=== PATIENT | female | born 1985 | race Two or more races ===

== ENCOUNTER 2024-07-22 00:54 | Inpatient (IN) | payer OTHER, SELFPAY ==
[2024-07-22] VITALS (17 sets, daily range): BP systolic 98–124; BP diastolic 55–80; PULSE 94–133; RESP 13–20; TEMP 36.4–37.9; O2SAT 96–100; BMI 28.5; BMI 29.6
--- NOTE | 2024-07-22 02:13 | EDRME_ITS ---
Rapid Medical Screening Exam [facility] Arrival date/time: 07/22/24 00:54 39F with history of anemia and bariatric surgery 7 years ago presents to ED with 2 days of gen ab pain and non-bloody diarrhea. Patient also states she had a 103 temp yesterday. Patient denies URI symptoms. Chief Complaint: Abdominal Pain Vital signs: Vital Signs Temperature 97.8 F 07/22/24 01:45 Pulse Rate 110 H 07/22/24 01:45 Respiratory Rate 17 07/22/24 01:45 Blood Pressure 111/73 07/22/24 01:45 Pulse Oximetry (%) 99 07/22/24 01:45 Oxygen Delivery Method Room Air 07/22/24 01:45
[2024-07-22] MEDS: ONDANSETRON ODT 4 MG TABRAP PO (02:23)
[2024-07-22 02:32] LABS: Lactate (Lactic Acid) 1.1 mMol/L (0.4-2.0)
--- NOTE | 2024-07-22 02:38 | XR_ITS ---
Examination: Abdomen sonogram, Limited Date and time of exam: July 22, 2024 0310 hours INDICATIONS: Epigastric pain beginning 2 days ago Technique: Real-time sargent scale transabdominal sonographic images of the upper abdomen obtained. Findings: 16 mm gallstone Gallbladder wall 0.3 cm no edema Common bile duct 0.3 cm Pancreatic head 1.9 cm Liver 15.6 cm fatty infiltration smooth contour no focal liver lesions Normal hepatopedal portal venous flow Patent IVC IMPRESSION: Cholelithiasis, negative for cholecystitis
[2024-07-22 02:40] LABS: Basophils # (Auto) 0.1 Thou/mm3 (0.0-0.2); Basophils % (Auto) 0 % (0-2.5); Eosinophils # (Auto) 8.6 Thou/mm3 (0.0-0.5); Eosinophils % (Auto) 45 % (0-10); Hematocrit 32.4 % (36.0-46.0); Hemoglobin 9.3 g/dL (12.0-16.0); Immature Granulocytes % (Auto) 0 % (0-0); Immature Granulocytes Auto 0.06 Thou/mm3 (0.00-0.00); Lymphocytes % (Auto) 5 % (10-50); Mean Corpuscular HGB Conc 28.7 g/dl (31.0-37.0); Mean Corpuscular Hemoglobin 18.9 pg (25.0-35.0); Mean Corpuscular Volume 66 fL (80-100); Monocytes % (Auto) 5 % (0-12); Neutrophils # (Auto) 8.5 Thou/mm3 (1.8-7.7); Neutrophils % (Auto) 44 % (37-80); Nucleated Red Blood Cell # 0.02 Thou/mm3 (0.00-0.00); Nucleated Red Blood Cell % 0 /100 WBC (0); Platelet Count 591 Thou/mm3 (140-440); RDW Standard Deviation 43.5 fL (36.4-46.3); Red Blood Count 4.93 Miln/mm3 (4.00-5.20); White Blood Count 19.2 Thou/mm3 (3.6-11.0)
[2024-07-22 03:03] LABS: Alanine Aminotransferase 11 U/L (10-49); Albumin, Serum 4.7 gm/dL (3.5-5.0); Albumin/Globulin Ratio 1.7 (1.2-2.2); Alkaline Phosphatase 82 U/L (46-116); Anion Gap 7 (7-16); Aspartate Amino Transferase 17 U/L (0-34); BUN/Creatinine Ratio 9 Ratio (12-20); Bilirubin,Total 0.6 mg/dL (0.3-1.2); Blood Urea Nitrogen 7 mg/dL (9-23); Calcium 9.2 mg/dL (8.3-10.6); Calcium (Corrected) 9.2 mg/dL (8.5-10.1); Carbon Dioxide 24.7 mMol/L (20.0-31.0); Chloride 101 mMol/L (98-107); Creatinine (Component) 0.8 mg/dL (0.6-1.3); Estimated Creatinine Clearance 85.3 mL/min (>60); Globulin 2.7 gm/dL (2.3-3.5); Glucose 193 mg/dL (74-106); Lipase 26 U/L (12-53); Osmolality,Calculated 269 (275-295); Procalcitonin 0.11 ng/ml (0.0-0.49); Sodium 133 mMol/L (136-145); Total Protein 7.4 gm/dL (5.7-8.2); eGFR > 60 See Note
--- NOTE | 2024-07-22 04:00 | PRELIM_ITS ---
Gallbladder ultrasound. July 22, 2024 at 0310 hours Clinical history: Right upper quadrant/epigas tric pain. Findings:The liver measures 16 cm and demonstrates increased echogenicity without mass or ductal dilatation. The portal vein demonstrates hepatopetal flow. A large calculus is seen with poste rior shadowing in the gallbladder. No gallbladder wall thickening or pericholecystic fluid is identif ied. The common duct is normal in caliber at 3.1 mm. The pancreas is unremarkable to the extent visua lized. The inferior vena cava is patent.Impression:Cholelithiasis without sonographic evidence of acu te cholecystitis or biliary obstruction. Fatty infiltration of the liver. Report Electronically Maria Victoria d By: Caroline Valverde 07/22/2024 3:59:40 AM [EST]
[2024-07-22] MEDS: MORPHINE SULF INJ 10 MG/ML VIAL 5 MG IM (04:37)
--- NOTE | 2024-07-22 04:46 | PC.NURSE ---
Pt made aware that we need a urine sample.
[2024-07-22] MEDS: SODIUM CHLORIDE 0.9% 1000 ML 1,000 ML 999 ML IV ×4 (06:25→11:55)
--- NOTE | 2024-07-22 06:50 | PC.NURSE ---
Pt appears ill. color is pale, eye movement is slow. GCS is 15. Pt unable to void at this time.
--- NOTE | 2024-07-22 07:11 | XR_ITS ---
Examination: CT abdomen with intravenous contrast CT pelvis with intravenous contrast 2-D coronal reconstructions 2-D sagittal reconstructions Date and time of exam:August 01, 2024 1013 hours INDICATIONS: Right-sided abdominal pain right upper epigastric pain beginning 2 days ago. CTDI: vol (mGy) 8.93 DLP: (mGycm) 533 Technique: Multiple axial sections of the abdomen and pelvis have been obtained. 64 slice high-resolution scanner used. 3 mm axial sections have been obtained, post intravenous injection 60 cc [id number] 2-D sagittal, coronal reconstructions obtained. Low dose protocols were performed. One or more of the following dose reduction techniques were used; automated exposure control, adjustment of the mA and/or KV according to patient size, use of iterative reconstruction technique. Findings: No focal liver lesions Distended gallbladder, please see the gallbladder sonogram report July 22, 2024 Spleen is not enlarged No pancreatic or adrenal mass No renal or ureteral calculi, no hydronephrosis Fluid distended small bowel loops Mild free fluid in the abdomen Fluid-filled enlarged inflamed appendix with appendicoliths, coronal images 57 through 68 medial to the cecum Diffuse increased density throughout the peritoneum especially in the pelvis Anteverted uterus Right ovarian probable follicular cysts Intact osseous structures IMPRESSION: Findings most consistent with perforated acute appendicitis, peritonitis in the pelvis, no definite pelvic abscess at this time The appearance should be clinically correlated
[2024-07-22] MEDS: PIPER/TAZO INJ 3.375 GM in SODIUM CHLORIDE 0.9% (P) 50 ML IV (07:31)
[2024-07-22] MEDS: SODIUM CHLORIDE 0.9% 250 ML 250 ML 999 ML IV (07:32)
[2024-07-22 07:45] LABS: HCG,Qualitative Serum Negative
[2024-07-22] MEDS: HYDROmorphone INJ 2 MG/ML VIAL 1 MG IVP ×2 (07:46→12:14)
[2024-07-22] MEDS: Vancomycin Inj 1,500 MG in SODIUM CHLORIDE 0.9% 500 ML 500 ML 200 MG IV (08:25)
[2024-07-22 09:25] LABS: Collection Type, Urine Clean Catch
[2024-07-22 09:29] LABS: HCG Qualitative,Urine Negative
[2024-07-22 09:30] LABS: Bilirubin,Urine Negative (Negative); Blood,Urine Trace (Negative); Clarity,Urine Clear (Clear/Hazy); Color,Urine Yellow (Lt Yel-Yel); Culture Indicated,Urine Not Indicated; Glucose, Urine Negative (Negative); Hyaline Casts,Urine < 1 /hpf (0-1); Ketones,Urine 1+ (Negative); Leukocyte Esterase,Urine Negative (Negative); Nitrite,Urine Negative (Negative); PH,Urine 6.5 (5.0-7.0); Protein,Urine 1+ (Neg - Trace); RBC,Urine 6 /hpf (0-3); Specific Gravity,Urine 1.035 (1.001-1.035); Squamous Epithelial Cell,Urine 3 /hpf (0-5); WBC,Urine 2 /hpf (0-5)
[2024-07-22 09:42] LABS: Amphetamine/Methamp Scrn,U Negative (Negative); Barbiturate Screen,Urine Negative (Negative); Benzodiazepines Screen,Urine Negative (Negative); Benzoylecgonine Screen, Ur Negative (Negative); Fentanyl Screen,Urine Negative (Negative); Opiate Screen,Urine Positive (Negative); THC Screen,Urine Negative (Negative)
--- NOTE | 2024-07-22 10:54 | EDNOTE_ITS ---
ED Abdominal Pain RME/HPI General Chief Complaint: Abdominal Pain Stated complaint: ABD pain, fever X 1day Time seen by provider: 07/22/24 04:15 Arrival date/time: 07/22/24 00:54 Limitations: no limitations RME / HPI RME / HPI narrative: 07/22/24 00:54 39F with history of anemia and bariatric surgery 7 years ago presents to ED with 2 days of gen ab pain and non-bloody diarrhea. Patient also states she had a 103 temp yesterday. Patient denies URI symptoms. DR. SHAYAN MERAZ ED EVALUATION: 39 year old female with hx of gastric bypass 7 years ago presents to the ED for complaint of abdominal pain beginning yesterday and worsening today. States pain is located throughout abdomen but greater across lower abdomen and described as It feels like my stomach is going to explode . Accompanied by nausea, dry heaving, fever of 103F yesterday, and 101F early this morning. No known modifying factors at home. Denies chest pain, cough, shortness of breath, URI symptoms, or urinary symptoms. Related Data Allergies Allergy/AdvReac Type Severity Reaction Status Date / Time No Known Allergies Allergy Verified 07/22/24 00:56 Review of Systems Review of Systems Narrative Review of Systems: GEN: +fever, no weight loss EYES: No discharge, no visual changes, no pain HEENT: No ear pain, no congestion, no sore throat PULM: No shortness of breath, no cough, no congestion CV: No chest pain, no dyspnea on exertion, no palpitations GI: +nausea, +dry heaving, no diarrhea, +pain, no constipation : No frequency, no urgency, no dysuria MUSC/SKEL: No joint pain, no back pain SKIN: No rash NEURO: No weakness, no headache Past Medical History Past Medical History GASTROINTESTINAL: Positive Gastrointestinal Disorders, Hemorrhoids and Obesity REPRODUCTIVE: Positive Pelvic Inflammatory Disease and Previous Pregnancies HEMATOLOGIC: Positive Blood Disorders and Anemia OTHER HISTORY: Positive Hospitalization and Chicken Pox Family History FAMILY HISTORY: Positive Family Respiratory Disorders, Family Gastrointestinal Problems, Family Cancer and Family Surgery Surgical History SURGICAL: Positive Abdominal Surgery, Gastric Bypass Surgery and Section (X3) Social History SMOKING STATUS: Never smoker ED Exam General Limitations: Present no limitations General appearance: Present alert and other (Mild distress) Head Head exam: Present atraumatic, normocephalic and normal inspection Eye Eye exam: Present normal appearance, PERRL and EOMI ENT ENT exam: Present normal exam, normal oropharynx and mucous membranes moist Neck Neck exam: Present normal inspection, full ROM and trachea midline Chest Chest inspection: Present normal inspection and symmetric chest wall rise Respiratory Respiratory exam: Present normal lung sounds bilaterally Cardiovascular Cardiovascular exam: Present tachycardia and normal heart sounds Abdominal Exam Abdominal exam: Present tenderness (Moderate to severe tenderness to palpation in the RUQ and RLQ with voluntary guarding); Absent rebound or rigidity Extremities Exam Extremities exam: Present normal inspection and full ROM Back Exam Back exam: Present normal inspection and full ROM Neurological Exam Neurological exam: Present alert, oriented X3 and CN II-XII intact Psychiatric Psychiatric exam: Present normal affect and normal mood Skin Skin exam: Present warm, dry, intact and normal color Course Quality Measures Current suspected stage: sepsis Possible source: GI tract/intra-abdominal Blood cultures ordered: completed in ED Antibiotic ordered: Yes Pertinent labs: 07/22/24 02:27 Lactic Acid 1.1 mMol/L (0.4-2.0) Procalcitonin 0.11 ng/ml (0.0-0.49) 0715: Sepsis alert initiated 0830: Sepsis reassessment performed consisting of lab review, vitals, physical exam. sepsis Orders Category Date Time Status CT Screening NOW Care 07/22/24 07:11 Active Splitting Machine Operator STAT Care 07/22/24 07:10 Active Continuous Pulse Oximetry STAT Care 07/22/24 07:11 Completed EKG (ED ONLY) *Do not use* NOW Care 07/22/24 07:11 Completed In and Out Catheter X1 Care 07/22/24 07:10 Active Miscellaneous Nursing Order NOW Care 07/22/24 09:11 Active NPO STAT Care 07/22/24 07:[address] abdomen pelvis w con Stat Exams 07/22/24 07:11 Completed EKG (ED Only) Stat Exams 07/22/24 07:10 Ordered US gall bladder Stat Exams 07/22/24 02:38 Completed CBC AM DRAW Lab 07/23/24 05:00 Ordered CBC AM DRAW Lab 07/24/24 05:00 Ordered CBC AM DRAW Lab 07/25/24 05:00 Ordered CBC AM DRAW Lab 07/26/24 05:00 Ordered CBC AM DRAW Lab 07/27/24 05:00 Ordered CBC AM DRAW Lab 07/28/24 05:00 Ordered CBC Stat Lab 07/22/24 02:27 Completed CMP [Comprehensive Metabolic Panel] AM DRAW Lab 07/23/24 05:00 Ordered CMP [Comprehensive Metabolic Panel] AM DRAW Lab 07/24/24 05:00 Ordered CMP [Comprehensive Metabolic Panel] AM DRAW Lab 07/25/24 05:00 Ordered CMP [Comprehensive Metabolic Panel] AM DRAW Lab 07/26/24 05:00 Ordered CMP [Comprehensive Metabolic Panel] AM DRAW Lab 07/27/24 05:00 Ordered CMP [Comprehensive Metabolic Panel] AM DRAW Lab 07/28/24 05:00 Ordered CMP [Comprehensive Metabolic Panel] Stat Lab 07/22/24 02:27 Completed Drug Screen,Urine Stat Lab 07/22/24 09:06 Completed HCG Qualitative,Urine Stat Lab 07/22/24 09:06 Completed HCG,Qualitative Serum Stat Lab 07/22/24 02:27 Completed Lactate (Lactic Acid) Stat Lab 07/22/24 02:27 Completed Lipase Stat Lab 07/22/24 02:27 Completed Procalcitonin Stat Lab 07/22/24 02:27 Completed Urinalysis, C/S if Indicated Stat Lab 07/22/24 09:06 Completed Vancomycin,Trough Stat Lab 07/23/24 21:00 Ordered Acetaminophen Ivpb [Ofirmev Inj] Med 07/22/24 11:30 Discontinued 1,000 mg in 100 ml IV NOW HYDROmorphone INJ [Dilaudid Inj] Med 07/22/24 07:10 Discontinued 1 mg IVP Q1H PRN Morphine Inj Med 07/22/24 04:30 Discontinued 5 mg IM X1 ONE Ondansetron Odt [Zofran Odt] Med 07/22/24 02:21 Discontinued 4 mg PO X1 ONE Piper/Tazo Inj [Zosyn Inj] 3.375 gm Med 07/22/24 07:14 Discontinued Sodium Chloride 0.9% (P) [Ns 0.9% (P)] 50 ml IV X1 Sodium Chloride 0.9% 1000 ml [Ns] 1,000 ml Med 07/22/24 07:10 Discontinued IV 999 mls/hr Sodium Chloride 0.9% 1000 ml [Ns] 1,000 ml Med 07/22/24 07:14 Discontinued IV 999 mls/hr Sodium Chloride 0.9% 1000 ml [Ns] 1,000 ml Med 07/22/24 11:30 Discontinued IV 999 mls/hr Sodium Chloride 0.9% 250 ml [Ns] 250 ml Med 07/22/24 07:14 Discontinued IV 999 mls/hr Vancomycin Inj 1,500 mg Med 07/22/24 08:00 Discontinued Sodium Chloride 0.9% 500 ml [Ns] 500 ml IV X1 Vancomycin Pharmacy to Dose Med 07/22/24 09:00 Active 1 each IV QDAY PRN Vancomycin/Ns 1 gm Ivpb 200 ml Med 07/22/24 22:00 Pending IV BID@1000,2200 Reevaluation(s) Reevaluation #1: Patient has moderate-severe abdominal tenderness, will order CT abdomen. Time: 07:13 Reevaluation #2: Patient complains of pain. Tachycardic on telemetry. We reviewed all the results, analysis, and treatment plans. Patient is amenable to admission for surgery. Time: 11:30 Vital Signs Vital signs: Vital Signs Temperature 97.8 F 07/22/24 01:45 Pulse Rate 110 H 07/22/24 01:45 Respiratory Rate 17 07/22/24 01:45 Blood Pressure 111/73 07/22/24 01:45 Pulse Oximetry (%) 99 07/22/24 01:45 Oxygen Delivery Method Room Air 07/22/24 01:45 Pulse ox is 99% on room air which is adequate. Abdominal Pain MDM MDM Narrative MDM Narrative:: Rima Campos am scribing for and in the presence of Dr. Schultz. Patient data External records reviewed:: [facility] previous records (I reviewed admission from 10/01/2019 through 10/02/2019 for anemia ) Clinical information provided by:: patient Social determinants that could affect healthcare access:: none Patient has the following chronic illnesses:: s/p gastric bypass How is presenting disease/condition affected by chronic disease/condition?: uneffected by Evaluation data The following diagnostics were reviewed and interpreted by me:: lab results, radiology exam(s) and EKG tracing(s) (EKG @ 07:24 am. Sinus tachycardia, rate 103, normal axis, normal intervals, no ectopy, no acute ischemia. ) Lab and/or radiology exams considered but not ordered:: None Interpretation Summary: Ordering Physician: Xavier Carrear PA-C Date of Service: 07/22/24 Procedure(s): US gall bladder Accession Number(s): [id number] cc: Arik Mcmahon MD; Ananth Carey MD; Xavier Carrera PA-C~ Examination: Abdomen sonogram, Limited Date and time of exam: July 22, 2024 0310 hours INDICATIONS: Epigastric pain beginning 2 days ago Technique: Real-time sargent scale transabdominal sonographic images of the upper abdomen obtained. Findings: 16 mm gallstone Gallbladder wall 0.3 cm no edema Common bile duct 0.3 cm Pancreatic head 1.9 cm Liver 15.6 cm fatty infiltration smooth contour no focal liver lesions Normal hepatopedal portal venous flow Patent IVC IMPRESSION: Cholelithiasis, negative for cholecystitis Dictated By: Ananth Carey MD Signed By: <Electronically signed by Ananth Carey MD in OV> 07/22/24 1017 ====== Ordering Physician: Drew Schultz MD Date of Service: 07/22/24 Procedure(s): CT abdomen pelvis w con Accession Number(s): [id number] cc: Arik Mcmahon MD; Ananth Carey MD; Drew Schultz MD~ Examination: CT abdomen with intravenous contrast CT pelvis with intravenous contrast 2-D coronal reconstructions 2-D sagittal reconstructions Date and time of exam:August 01, 2024 1013 hours INDICATIONS: Right-sided abdominal pain right upper epigastric pain beginning 2 days ago. CTDI: vol (mGy) 8.93 DLP: (mGycm) 533 Technique: Multiple axial sections of the abdomen and pelvis have been obtained. 64 slice high-resolution scanner used. 3 mm axial sections have been obtained, post intravenous injection 60 cc [id number] 2-D sagittal, coronal reconstructions obtained. Low dose protocols were performed. One or more of the following dose reduction techniques were used; automated exposure control, adjustment of the mA and/or KV according to patient size, use of iterative reconstruction technique. Findings: No focal liver lesions Distended gallbladder, please see the gallbladder sonogram report July 22, 2024 Spleen is not enlarged No pancreatic or adrenal mass No renal or ureteral calculi, no hydronephrosis Fluid distended small bowel loops Mild free fluid in the abdomen Fluid-filled enlarged inflamed appendix with appendicoliths, coronal images 57 through 68 medial to the cecum Diffuse increased density throughout the peritoneum especially in the pelvis Anteverted uterus Right ovarian probable follicular cysts Intact osseous structures IMPRESSION: Findings most consistent with perforated acute appendicitis, peritonitis in the pelvis, no definite pelvic abscess at this time The appearance should be clinically correlated Dictated By: nAanth Carey MD Signed By: <Electronically signed by Ananth Carey MD in OV> 07/22/24 1106 Medications / Prescriptions Medications or Prescriptions considered but not ordered:: None Medication administrations:: Medication Administration History Acetaminophen (Acetaminophen 325 Mg Tablet) 650 mg PO Q6H PRN PRN Reason: Fever >101.5 Stop: 08/21/24 15:19 Vancomycin/Sodium Chloride (Vancomycin/Ns 1 Gm Ivpb) 200 mls @ 120 mls/hr IV BID@1000,2200 THANIA; Protocol Stop: 07/29/24 21:59 Potassium Chloride/Dextrose/Sod Cl (Kcl 20 Meq/L In D5-1/2ns) 20 meq in 1,000 mls @ 100 mls/hr IV .Q10H THANIA Stop: 08/21/24 15:29 Cefoxitin Sodium 2 gm/ Sodium (Chloride) 50 mls @ 100 mls/hr IV Q6HR THANIA Stop: 07/29/24 17:59 Morphine Sulfate (Morphine Sulf Inj 10 Mg/Ml Vial) 3 mg IVP Q2H PRN PRN Reason: PAIN Stop: 07/27/24 15:19 Ondansetron HCl (Ondansetron Inj 2 Mg/Ml Inj 2 Ml) 4 mg IV Q6H PRN PRN Reason: NAUSEA OR VOMITING Stop: 08/21/24 15:19 Pharmacy Consult (Vancomycin Pharmacy To Dose 1 Each Each) 1 each IV QDAY PRN PRN Reason: PROTOCOL Stop: 08/21/24 08:59 Discontinued Medications Hydromorphone HCl (Hydromorphone Inj 2 Mg/Ml Vial) 1 mg IVP Q1H PRN PRN Reason: abdominal pain Stop: 07/22/24 10:11 Last Admin: 07/22/24 12:14 Dose: 1 mg Documented By: Admin: 07/22/24 07:46 Dose: 1 mg Documented By: GREG Sodium Chloride (Ns) 1,000 mls @ 999 mls/hr IV .Q1H1M ONE Stop: 07/22/24 08:10 Last Infusion: 07/22/24 08:58 Dose: Infused Documented By: Admin: 07/22/24 07:30 Dose: 999 mls/hr Documented By: Infusion: 07/22/24 07:26 Dose: Infused Documented By: Admin: 07/22/24 06:25 Dose: 999 mls/hr Documented By: AKILAH Sodium Chloride (Ns) 1,000 mls @ 999 mls/hr IV .Q1H1M ONE Stop: 07/22/24 08:14 Last Infusion: 07/22/24 08:58 Dose: Infused Documented By: Admin: 07/22/24 07:31 Dose: 999 mls/hr Documented By: GREG Sodium Chloride (Ns) 250 mls @ 999 mls/hr IV .Q16M ONE Stop: 07/22/24 07:29 Last Infusion: 07/22/24 08:58 Dose: Infused Documented By: Admin: 07/22/24 07:32 Dose: 999 mls/hr Documented By: GREG Piperacillin Sod/Tazobactam (Sod 3.375 gm/ Sodium Chloride) 50 mls @ 100 mls/hr IV X1 ONE Stop: 07/22/24 07:43 Last Infusion: 07/22/24 08:01 Dose: Infused Documented By: Admin: 07/22/24 07:31 Dose: 100 mls/hr Documented By: GREG Vancomycin HCl 1,500 mg/ (Sodium Chloride) 500 mls @ 200 mls/hr IV X1 ONE Stop: 07/22/24 10:29 Last Infusion: 07/22/24 11:53 Dose: Infused Documented By: Admin: 07/22/24 08:25 Dose: 200 mls/hr Documented By: GREG Acetaminophen (Ofirmev Inj) 1,000 mg in 100 mls @ 250 mls/hr IV NOW ONE Stop: 07/22/24 11:53 Last Infusion: 07/22/24 12:22 Dose: Infused Documented By: Admin: 07/22/24 11:55 Dose: 250 mls/hr Documented By: CHEYENNE Sodium Chloride (Ns) 1,000 mls @ 999 mls/hr IV .Q1H1M ONE Stop: 07/22/24 12:30 Last Infusion: 07/22/24 15:23 Dose: Infused Documented By: Admin: 07/22/24 11:55 Dose: 999 mls/hr Documented By: CHEYENNE Morphine Sulfate (Morphine Sulf Inj 10 Mg/Ml Vial) 5 mg IM X1 ONE Stop: 07/22/24 04:31 Last Admin: 07/22/24 04:37 Dose: 5 mg Documented By: LIAN Ondansetron HCl (Ondansetron Odt 4 Mg Tabrap) 4 mg PO X1 ONE; Protocol Stop: 07/22/24 02:22 Last Admin: 07/22/24 02:23 Dose: 4 mg Documented By: LIAN See above Consultations Consultation(s) initiated? (list below): Yes Consultation #1 (Physician, Specialty, Details): I spoke with surgeon Dr. Ram. Discussed patients PMHx, HPI, ED course, exam findings, labs, and radiology results. States he will come evaluate the patient in the ED. Time: 11:35 Diagnosis Differential diagnosis abdominal pain: abdominal pain, acute appendicitis, calculus of kidney, gastroenteritis and pancreatitis Most likely diagnosis given after review of the tests above:: Perforated appendicitis Admission Indicated Admission indicated?: indicated Admission Request Was there a request for admission?: Yes Admission Attestation Admission request attestation: Discussed case with [] from Hospitalist service regarding admission. Discussed patients ED course, exam findings, labs, and radiology results. The Hospitalist [agrees,declines] to accept the patient for admission. Disposition Plan Disposition Plan: Admit Critical Care Time Critical Care Time Critical Care Time: Yes Total Critical Care Time (min.): 45 Attestation: The high probability of sudden, clinically significant deterioration in the patient's condition required the highest level of my preparedness to intervene urgently. The services I provided to this patient were to treat and/or prevent clinically significant deterioration. Services included the following: chart data review, reviewing nursing notes and/or old charts, documentation time, mobile sales consultant collaboration regarding findings and treatment options, medication orders and management, direct patient care, vital sign assessments and ordering, interpreting and reviewing diagnostic studies and lab tests. Aggregate critical care time includes only time during which I was engaged in work directly related to the patient's care, as described above, whether at bedside or elsewhere in the Emergency Department. It did not include time spent performing other reported procedures or the services of residents, students, nurses or physician assistants. Discharge Plan Plan Patient Disposition: Admit Acute Care w/in Hospital Problem List Clinical Impression: Acute perforated appendicitis
[2024-07-22] MEDS: ACETAMINOPHEN IVPB 1,000 MG/100 ML VIAL 250 MG IV (11:55)
--- NOTE | 2024-07-22 16:08 | PC.NURSE ---
report given to sx pt taken to sx
--- NOTE | 2024-07-22 16:44 | ESHP_ITS ---
HPI Date of Admission 07/22/24 15:20 Chief Complaint Chief Complaint: Right lower quadrant abdominal pain with nausea and vomiting HPI 39-year-old female presented to the emergency department with acute onset of ab dominal pain. Her pain started 3 days ago. Pain was initially in the epigastric and periumbilical region. Since yesterday her pain has become localized over right lower quadrant and has been getting progressively worse. She has had nausea and vomiting, but denies fever, chills, diarrhea, constipation or dysuria. She denies having similar symptoms in the past with no recent history of trauma. Review of Systems Constitutional Constitutional: Denies chills and Denies fever(s) Cardiovascular Cardiovascular: Denies chest pain Respiratory Respiratory: Denies cough Gastrointestinal Gastrointestinal: Reports abdominal pain, Reports nausea and Reports vomiting Genitourinary Genitourinary: Denies difficulty voiding Hematologic/Lymphatic Hematologic/Lymphatic: Denies easy bleeding and Denies easy bruising Past Medical History Surgical History OTHER SURGICAL HX: , laparoscopic gastric bypass Social History SMOKING STATUS: Never smoker SUBSTANCE USE: does not use ALCOHOL: Never Meds Home Medications and Allergies Allergies Allergy/AdvReac Type Severity Reaction Status Date / Time No Known Allergies Allergy Verified 07/22/24 00:56 Exam Vital Signs Temp Pulse Resp BP Pulse Ox O2 Del Method 98.9 F 110 H 18 99/58 L 97 Room Air 07/22/24 14:02 07/22/24 14:02 07/22/24 14:02 07/22/24 14:02 07/22/24 14:02 07/22/24 14:02 Constitutional Constitutional: no acute distress Routine Respiratory Exam Respiratory: Present CTA bilaterally Routine Cardiovascular Exam Cardiovascular: Present tachycardia Routine Abdominal Exam Abdominal: Present soft, normoactive bowel sounds and tenderness (Right lower quadrant tenderness to palpation with guarding and rebound tenderness. Positive Rovsing sign); Absent distended Results Results: Laboratory Laboratory results: results reviewed Results: Imaging CT scan - abdomen: report reviewed and image reviewed CT scan - pelvis: report reviewed and image reviewed Assessment & Plan Problem List (1) Acute appendicitis with perforation and localized peritonitis: Status: Acute Plan Will keep patient n.p.o. with IV fluids and IV antibiotics and plan for laparoscopic possible open appendectomy. Risks include but not limited to infection, bleeding, injury to bowel, uterus, ovaries, surround neurovascular structures, abdominal sepsis and or abdominal abscess, need for further procedure and or operation discussed with the patient. Benefits and alternatives explained to her, all her questions answered, she agreed and consented to proceed with the operation. Quality Measures Quality Measures sepsis Current suspected stage: ruled out Possible source: GI tract/intra- abdominal Blood cultures ordered: completed in ED Antibiotic ordered: Yes
--- NOTE | 2024-07-22 17:45 | SUR.PHASEI ---
received pt and report from Dr. Thompson and RN Minna. Pt resting however arousable to voice and touch. vss. hr slightly tachy, Dr. Thompson at bedside and aware. He stated pt's baseline prior to surgery was hr tachy. will cont to monitor. IV in place, no s/s of inifiltration noted to site, x4 dermabond to abd, CDI. no distress noted, will con to monitor.
--- NOTE | 2024-07-22 18:03 | SUR.PHASEI ---
pt resting, no distress noted. vss, dressing x4 to abd remains CDI. will continue to monitor
--- NOTE | 2024-07-22 18:04 | ESOP_ITS ---
Date of Procedure 07/22/24 Pre Op Diagnosis Perforated appendicitis Post Op Diagnosis Perforated appendicitis with generalized peritonitis Procedure Laparoscopic appendectomy with abdominal washout Findings Perforated appendix with purulent drainage throughout the abdomen Procedure Description Patient was brought into the operating room in supine position. After administration of general endotracheal anesthesia, abdomen was prepped and draped in standard surgical manner. A Veress needle was inserted through the umbilicus and pneumoperitoneum was obtained up to 15 mmHg. The Veress needle was removed and a 5 mm umbilical incision was made. A 5 mm trocar was placed and laparoscopic camera was inserted. Under direct visualization a laparoscopic camera a 5 mm trocar placed in suprapubic region and a 10 mm trocar placed in left lower quadrant. Upon entering the abdominal cavity patient was noted to have purulent drainage throughout the abdomen. The abdomen was inspected, the cecum was identified and followed until the appendix was identified, there was extensive amount of inflammatory reaction. The appendix was identified, was noted to be inflamed, dilated with perforation. A window was created between the appendix and mesoappendix and the appendix was divided near the appendix and cecal junction with blue Endo LAZARO stapling device. The mesoappendix was divided with sargent Endo LAZARO stapling device. The appendix was placed inside an Endo Catch and removed from the abdomen utilizing left lower quadrant trocar site. Abdomen and pelvis copiously and thoroughly washed and irrigated, all the fluids were suctioned and the suctioned fluid returned clear. Hemostasis was adequate and satisfactory, staple lines were intact without bleeding or any leakage. Left lower quadrant trocar sites fascial defect was closed with 0 Vicryl using Endo closure device. Instruments and trocars removed, pneumoperitoneum was evacuated and the incisions closed with 4-0 Monocryl subcuticular fashion. Instruments, needles and sponge counts were reported to be correct ??2. Patient tolerated the procedure well, was extubated, breathing spontaneously and without difficulty and was transferred to postanesthesia care in stable condition. Anesthesia GETA and local Pathology / specimen Other (Appendix) Estimated Blood Loss 10 Condition Stable Disposition PACU Surgeon Rodrick Ram MD Surgical Staff Operation Date: 07/22/24 17:15 Case Staff Anesthesiologist: Lonnie Thompson RNprimer powder blender wet: Kary Mello
--- NOTE | 2024-07-22 18:19 | SUR.PHASEI ---
report given DWAYNE REESE. pt recoverying well, no distress noted, vss. dressing remains cdi, iv site no s/s of infiltration or redness. Pt ready to transfer
--- NOTE | 2024-07-22 18:44 | PD.ANESPROG ---
Documentation for date of: 07/22/24 ANESTHESIA NOTE: Patient had GETA for lap appendectomy earlier today. Pre-op, she was having lot of abdominal pain, has been febrile and tachycardic. She did well intra-op and in PACU. I gave her 1 gm IV Acetaminophen intra-op at 17:30 and 2 gm IV Cefoxitin. Lonnie Thompson MD Anesthesia Progress Note Progress Note Most recent Vital Signs: Last Vital Signs Temp 97.5 F 07/22/24 18:00 Pulse 115 H 07/22/24 18:00 Resp 15 07/22/24 18:00 BP 110/66 07/22/24 18:00 Pulse Ox 98 07/22/24 18:00 O2 Del Method Room Air 07/22/24 14:02 O2 Flow Rate 2 07/22/24 18:00
[2024-07-22] MEDS: CEFOXITIN 2 GM in SODIUM CHLORIDE 0.9% (P) 50 ML IV (19:53)
[2024-07-22] MEDS: KCL 20 mEq/L in D5-1/2NS 20 MEQ/1,000 ML BAG 100 MEQ IV (19:53)
[2024-07-22] MEDS: ONDANSETRON INJ 2 MG/ML INJ 2 ML 4 MG IV (19:53)
[2024-07-22] MEDS: MORPHINE SULF INJ 10 MG/ML VIAL 3 MG IVP (20:36)
[2024-07-22] MEDS: metroNIDAZOLE/NS 500 MG IVPB 500 MG/100 ML BAG 200 MG IV (20:54)
[2024-07-23] VITALS: BP 117/70; PULSE 85; RESP 17; TEMP 36.3; O2SAT 95
[2024-07-23] MEDS: CEFOXITIN 2 GM in SODIUM CHLORIDE 0.9% (P) 50 ML IV ×5 (01:03→23:28)
[2024-07-23 04:00] VITALS: BP 116/79; PULSE 80; RESP 17; TEMP 36.1; O2SAT 96
[2024-07-23] MEDS: metroNIDAZOLE/NS 500 MG IVPB 500 MG/100 ML BAG 200 MG IV ×3 (05:55→21:25)
[2024-07-23] MEDS: KCL 20 mEq/L in D5-1/2NS 20 MEQ/1,000 ML BAG 100 MEQ IV ×2 (06:24→17:31)
[2024-07-23] MEDS: MORPHINE SULF INJ 10 MG/ML VIAL 3 MG IVP ×4 (07:39→23:32)
[2024-07-23 08:00] VITALS: BP 128/85; PULSE 101; RESP 17; TEMP 36.9; O2SAT 98
--- NOTE | 2024-07-23 09:52 | PD.SURPROG ---
Documentation for date of: 07/23/24 Subjective Subjective Narrative: Patient is seen and examined. She is feeling much better. She is tolerating liquid diet without nausea or vomiting. She has been voiding and ambulating Exam Vital Signs Temp Pulse Resp BP Pulse Ox O2 Del Method O2 Flow Rate 98.4 F 101 H 17 128/85 H 98 Room Air 2 07/23/24 08:00 07/23/24 08:00 07/23/24 08:00 07/23/24 08:00 07/23/24 08:00 07/23/24 08:00 07/22/24 18:15 Constitutional Constitutional: no acute distress Routine Abdominal Exam Abdominal: Present soft, normoactive bowel sounds and tenderness (Tenderness to deep palpation over lower abdomen. No rebound tenderness or peritonitis at this time. Incisions are clean, dry and intact); Absent distended Assessment & Plan Assessment Additional comments: Postop day #1 status post laparoscopic appendectomy for perforated appendicitis with generalized peritonitis Plan Continue IV antibiotics. Will keep patient on liquid diet today. Patient is advised to increase ambulation Procedures Procedures Laparoscopic appendectomy with abdominal washout
[2024-07-23 12:00] VITALS: BP 122/82; PULSE 99; RESP 18; TEMP 36.6; O2SAT 97
[2024-07-23 16:00] VITALS: BP 119/70; PULSE 93; RESP 18; TEMP 36.9; O2SAT 97
[2024-07-23 20:00] VITALS: BP 135/83; PULSE 103; RESP 17; TEMP 36.6; O2SAT 99
[2024-07-24] VITALS (21 sets, daily range): BP systolic 105–136; BP diastolic 74–85; PULSE 96–122; RESP 16–189; TEMP 36.6–39.2; O2SAT 94–98
[2024-07-24] MEDS: ACETAMINOPHEN 325 MG TABLET 650 MG PO ×3 (03:52→23:32)
[2024-07-24] MEDS: MORPHINE SULF INJ 10 MG/ML VIAL 3 MG IVP ×3 (03:53→22:03)
[2024-07-24] MEDS: CEFOXITIN 2 GM in SODIUM CHLORIDE 0.9% (P) 50 ML IV ×4 (05:20→23:32)
[2024-07-24 05:37] LABS: Basophils % (Auto) 0 % (0-2.5); Eosinophils % (Auto) 0 % (0-10); Hematocrit 23.1 % (36.0-46.0); Immature Granulocytes % (Auto) 1 % (0-0); Immature Granulocytes Auto 0.07 Thou/mm3 (0.00-0.00); Lymphocytes # (Auto) 0.9 Thou/mm3 (1.0-4.8); Lymphocytes % (Auto) 7 % (10-50); Mean Corpuscular HGB Conc 28.6 g/dl (31.0-37.0); Mean Corpuscular Hemoglobin 18.5 pg (25.0-35.0); Mean Corpuscular Volume 65 fL (80-100); Monocytes # (Auto) 0.8 Thou/mm3 (0.0-0.8); Monocytes % (Auto) 6 % (0-12); Neutrophils # (Auto) 11.3 Thou/mm3 (1.8-7.7); Neutrophils % (Auto) 87 % (37-80); Nucleated Red Blood Cell % 0 /100 WBC (0); Platelet Count 337 Thou/mm3 (140-440); RDW Standard Deviation 43.8 fL (36.4-46.3); Red Blood Count 3.56 Miln/mm3 (4.00-5.20); White Blood Count 13.1 Thou/mm3 (3.6-11.0)
[2024-07-24 05:54] LABS: Hemoglobin 6.6 g/dL (12.0-16.0)
[2024-07-24] MEDS: metroNIDAZOLE/NS 500 MG IVPB 500 MG/100 ML BAG 200 MG IV ×3 (05:55→21:39)
[2024-07-24 06:05] LABS: Albumin, Serum 3.4 gm/dL (3.5-5.0); Anion Gap 6 (7-16); BUN/Creatinine Ratio 8 Ratio (12-20); Blood Urea Nitrogen < 5 mg/dL (9-23); Calcium 8.3 mg/dL (8.3-10.6); Calcium (Corrected) 8.8 mg/dL (8.5-10.1); Carbon Dioxide 25.3 mMol/L (20.0-31.0); Chloride 105 mMol/L (98-107); Creatinine (Component) 0.6 mg/dL (0.6-1.3); Estimated Creatinine Clearance 115.8 mL/min (>60); Glucose 131 mg/dL (74-106); Magnesium 1.5 mg/dL (1.6-2.6); Osmolality,Calculated 271 (275-295); Phosphorous 1.7 mg/dL (2.4-5.1); Potassium 3.6 mMol/L (3.4-5.1); Sodium 136 mMol/L (136-145); eGFR > 60 See Note
--- NOTE | 2024-07-24 06:50 | PC.NURSE ---
called Dr. Ram for critical lab of H/H .02/06.1. No new orders received.
[2024-07-24] MEDS: KCL 20 mEq/L in D5-1/2NS 20 MEQ/1,000 ML BAG 100 MEQ IV (07:26)
--- NOTE | 2024-07-24 12:22 | PD.SURPROG ---
Documentation for date of: 07/24/24 Subjective Subjective Narrative: Patient is seen and examined. Her pain is improving. She is tolerating liquids without nausea or vomiting Exam Vital Signs Temp Pulse Resp BP Pulse Ox O2 Del Method O2 Flow Rate 98.6 F 105 H 16 125/85 H 98 Room Air 2 07/24/24 11:40 07/24/24 11:40 07/24/24 11:40 07/24/24 11:40 07/24/24 11:40 07/24/24 11:40 07/22/24 18:15 Constitutional Constitutional: no acute distress Routine Abdominal Exam Abdominal: Present soft, normoactive bowel sounds and tenderness (Mild lower abdominal tenderness with deep palpation, no rebound tenderness or peritonitis at this time. Incisions are clean, dry and intact); Absent distended Assessment & Plan Assessment Additional comments: Postop day #2 status post laparoscopic appendectomy Plan Continue IV antibiotics. WBC still elevated. Will transfuse 2 units PRBC for acute blood loss anemia Procedures Procedures Laparoscopic appendectomy with abdominal washout
[2024-07-25] VITALS (8 sets, daily range): BP systolic 117–130; BP diastolic 83–89; PULSE 79–116; RESP 16–18; TEMP 36.1–38.1; O2SAT 95–98; BMI 29.8
[2024-07-25] MEDS: metroNIDAZOLE/NS 500 MG IVPB 500 MG/100 ML BAG 200 MG IV ×3 (05:04→21:20)
[2024-07-25] MEDS: CEFOXITIN 2 GM in SODIUM CHLORIDE 0.9% (P) 50 ML IV ×3 (05:05→18:33)
[2024-07-25 09:43] LABS: Basophils % (Auto) 0 % (0-2.5); Eosinophils # (Auto) 0.1 Thou/mm3 (0.0-0.5); Eosinophils % (Auto) 1 % (0-10); Hematocrit 32.3 % (36.0-46.0); Hemoglobin 9.9 g/dL (12.0-16.0); Immature Granulocytes % (Auto) 1 % (0-0); Immature Granulocytes Auto 0.12 Thou/mm3 (0.00-0.00); Lymphocytes # (Auto) 1.1 Thou/mm3 (1.0-4.8); Lymphocytes % (Auto) 10 % (10-50); Mean Corpuscular HGB Conc 30.7 g/dl (31.0-37.0); Mean Corpuscular Volume 68 fL (80-100); Monocytes % (Auto) 9 % (0-12); Neutrophils # (Auto) 8.8 Thou/mm3 (1.8-7.7); Neutrophils % (Auto) 79 % (37-80); Nucleated Red Blood Cell % 0 /100 WBC (0); Platelet Count 332 Thou/mm3 (140-440); RDW Standard Deviation 53.4 fL (36.4-46.3); Red Blood Count 4.72 Miln/mm3 (4.00-5.20); White Blood Count 11.2 Thou/mm3 (3.6-11.0)
[2024-07-25 10:05] LABS: Albumin, Serum 3.8 gm/dL (3.5-5.0); Anion Gap 7 (7-16); BUN/Creatinine Ratio 10 Ratio (12-20); Blood Urea Nitrogen 6 mg/dL (9-23); Calcium 8.6 mg/dL (8.3-10.6); Calcium (Corrected) 8.8 mg/dL (8.5-10.1); Chloride 102 mMol/L (98-107); Creatinine (Component) 0.6 mg/dL (0.6-1.3); Estimated Creatinine Clearance 115.8 mL/min (>60); Glucose 133 mg/dL (74-106); Magnesium 1.8 mg/dL (1.6-2.6); Osmolality,Calculated 271 (275-295); Phosphorous 2.7 mg/dL (2.4-5.1); Potassium 3.4 mMol/L (3.4-5.1); Sodium 136 mMol/L (136-145); eGFR > 60 See Note
--- NOTE | 2024-07-25 12:09 | PD.SURPROG ---
Documentation for date of: 07/25/24 Subjective Subjective Narrative: Patient is seen and examined. She is resting comfortably, her pain is improving. She is tolerating diet without nausea or vomiting and having bowel movements Exam Vital Signs Temp Pulse Resp BP Pulse Ox O2 Del Method O2 Flow Rate 97.0 F 79 17 121/89 H 98 Room Air 2 07/25/24 11:53 07/25/24 11:53 07/25/24 11:53 07/25/24 11:53 07/25/24 11:53 07/25/24 11:53 07/22/24 18:15 Constitutional Constitutional: no acute distress Routine Abdominal Exam Abdominal: Present soft, normoactive bowel sounds and tenderness (Mild lower abdominal tenderness. Incisions are clean, dry and intact. No rebound tenderness or peritonitis at this time); Absent distended Assessment & Plan Assessment Additional comments: Postop day #1 status post laparoscopic appendectomy for perforated appendicitis with generalized peritonitis Plan Continue IV antibiotics, WBC still elevated. If WBC normalizes, she remains afebrile and she continues to improve may discharge home tomorrow Procedures Procedures Laparoscopic appendectomy with abdominal washout
--- NOTE | 2024-07-25 12:26 | PC.SS ---
SS met with patient regarding her d/c plan. Pt is alert/oriented. Pt was admitted for Perforated Appendicitis. Pt is on IV antibiotic. Pt confirmed demographic and contact information is correct on facesheet. Pt is employed full time paramedic. Pt resides with . Pt ambulates independently without assistance or DME. Pt is ok with all ADLs. Patient?s pharmacy of choice is [facility] on [address]. Pt named her , [facility]el[facility] House medical decision maker if she is unable. Patient?s choice is to return home upon d/c. Pt does not have an advance directive, SS offered, and pt declined. Pt states she last followed up with PCP in December 2023. D/C plan: Return home Next of Kin: Cornelius House, , phone# [phone] PCP: Dr. MORE Address: Correct on facesheet
[2024-07-25 12:29] LABS: Path Review Blood Smear Sent to Pathologist
[2024-07-25] MEDS: HYDROcodone/APAP 5/325 TABLET 1 TAB PO ×2 (12:56→21:25)
[2024-07-26] VITALS: BP 117/85; PULSE 78; RESP 17; TEMP 36.1; O2SAT 98
[2024-07-26] MEDS: CEFOXITIN 2 GM in SODIUM CHLORIDE 0.9% (P) 50 ML IV ×3 (00:08→12:42)
[2024-07-26 04:00] VITALS: BP 124/84; PULSE 73; RESP 17; TEMP 36.2; O2SAT 96
[2024-07-26] MEDS: metroNIDAZOLE/NS 500 MG IVPB 500 MG/100 ML BAG 200 MG IV (05:16)
[2024-07-26 06:12] LABS: Basophils # (Auto) 0.1 Thou/mm3 (0.0-0.2); Basophils % (Auto) 1 % (0-2.5); Eosinophils # (Auto) 0.1 Thou/mm3 (0.0-0.5); Eosinophils % (Auto) 1 % (0-10); Hematocrit 31.4 % (36.0-46.0); Hemoglobin 9.5 g/dL (12.0-16.0); Immature Granulocytes % (Auto) 1 % (0-0); Immature Granulocytes Auto 0.06 Thou/mm3 (0.00-0.00); Lymphocytes # (Auto) 1.5 Thou/mm3 (1.0-4.8); Lymphocytes % (Auto) 15 % (10-50); Mean Corpuscular HGB Conc 30.3 g/dl (31.0-37.0); Mean Corpuscular Hemoglobin 20.7 pg (25.0-35.0); Mean Corpuscular Volume 68 fL (80-100); Monocytes # (Auto) 1.2 Thou/mm3 (0.0-0.8); Monocytes % (Auto) 12 % (0-12); Neutrophils # (Auto) 7.2 Thou/mm3 (1.8-7.7); Neutrophils % (Auto) 71 % (37-80); Nucleated Red Blood Cell % 0 /100 WBC (0); Platelet Count 304 Thou/mm3 (140-440); RDW Standard Deviation 53.8 fL (36.4-46.3); White Blood Count 10.1 Thou/mm3 (3.6-11.0)
--- NOTE | 2024-07-26 06:40 | PC.NURSE ---
Pt is more than half way through with Golytely. Stools appear almost clear yellow liquid.
[2024-07-26 08:00] VITALS: BP 142/80; PULSE 98; RESP 18; TEMP 36.3; O2SAT 97
[2024-07-26 12:00] VITALS: BP 125/84; PULSE 95; RESP 18; TEMP 36.2; O2SAT 95
--- NOTE | 2024-07-26 13:36 | ESDS_ITS ---
Planned Discharge Date 07/26/24 DS: Providers Provider Date of admission: 07/22/24 15:20 Primary care physician: Arik Mcmahon MD Admitting Provider: Rodrick Ram MD Attending Provider on Admission: Rodrick Ram MD Consults: 07/22/24 22:33 Referral Beau Routine Comment: Referral Respiratory Therapy Routine Comment: Attending Provider on DC: Rodrick Ram MD Discharging Provider: Rodrick Ram MD Diagnosis Discharge Diagnosis (1) Acute appendicitis with perforation and generalized peritonitis: Status: Acute Problem List Completed Was Problem List Reviewed/Reconciled?: Yes Hospital Course 39-year-old female presented to the emergency department with abdominal pain with nausea and vomiting. She underwent laparoscopic appendectomy with abdominal washout that revealed perforated appendicitis with generalized peritonitis. Postoperatively she was started on clear liquids and her diet was gradually advanced. She was eating and tolerating diet well without nausea or vomiting. She started passing flatus and then started having bowel movements. She has been voiding and ambulating without difficulty. Her WBC normalized and she remained afebrile. She received IV antibiotics throughout hospitalization. She did require 2 units of blood transfusion for acute blood loss anemia. She has remained hemodynamically stable. Her incisions are clean, dry and intact. She is being discharged home in stable condition. Status at Discharge Functional status at discharge: independent ambulation Overall status at discharge: patient is progressing back to baseline Exam Vital Signs Temp Pulse Resp BP Pulse Ox O2 Del Method O2 Flow Rate 97.1 F 95 18 125/84 95 Room Air 2 07/26/24 12:00 07/26/24 12:00 07/26/24 12:00 07/26/24 12:00 07/26/24 12:00 07/26/24 08:00 07/22/24 18:15 Constitutional Constitutional: no acute distress Routine Abdominal Exam Abdominal: Present soft, normoactive bowel sounds and surgical scars (Incisions are clean, dry and intact); Absent tenderness or distended Discharge Plan Plan Patient Disposition: HOME (Self Care) Prescriptions/Referrals Prescriptions/Med Rec: New docusate sodium [Colace] 100 mg capsule 100 mg PO BID Qty: 60 0RF ibuprofen 600 mg tablet 600 mg PO Q8H PRN (Reason: pain (scale score 4-6)) Qty: 15 0RF hydrocodone-acetaminophen 5-325 mg tablet 1 tab PO Q6H MDD 4 PRN (Reason: pain (scale score 7-10)) Qty: 10 0RF sulfamethoxazole-trimethoprim [Bactrim DS] 800-160 mg tablet 1 tab PO BID Qty: 14 0RF Continued ferrous sulfate [Iron (ferrous sulfate)] 325 mg (65 mg iron) Tablet 325 mg PO QDAY Referrals: Arik Mcmahon MD [Primary Care Provider] - Patient/Caregiver Discharge Instructions Discharge Activity: activity as tolerated Education Materials: Preventing Surgical Site Infections Print Language: Indonesian Activity Restrictions/Additional Instructions: May shower. Avoid lifting, straining, pulling or pushing for 4 weeks. May take over the counter laxatives if no bowel movement in 2 days. Follow up with Dr. Ram in 2 weeks, call [phone] for an appointment. Stand Alone Forms: Ana Award Info., Patient Portal Info Letter Discharge Order Discharge Orders: Discharge (Routine); Ordered 07/26/24 Ordered By: Rodrick Ram Procedures Procedure Date 07/22/24 Procedures Laparoscopic appendectomy with abdominal washout
--- NOTE | 2024-07-26 13:42 | CHAP ---
09:30 AM Visited by spiritual care volunteer Provided prayer for Patient.
== END 2024-07-26 15:21 | disposition home or self-care (01) | DRG 398 ==
LOC: SERX 11:50 → SERHOLD 15:47 → S3SX 18:46
PROVIDERS: Physician Assistant; Admitting Provider Surgery; Emergency Provider Emergency Medicine; PCP Family Medicine; Visit Provider Surgery
PROC: 0DTJ4ZZ Resection of Appendix, Percutaneous Endoscopic Approach (ICD-10-PCS; CPT 44970; principal; 2024-07-22 17:00)
DX: K35.201 Acute appendicitis with generalized peritonitis, with perforation, without abscess (principal); D62 Acute posthemorrhagic anemia; Z98.84 Bariatric surgery status
CPT/HCPCS: 36415; 74177; 76705; 80053; 80069; 80307; 81001; 81025; 83605; 83690; 83735; 84145; 84703; 85025; 86850; 86900; 86901; 86923; 96360; 96361; 96372; 99291; A4217; A4649; J0131; J0694; J1100; J1580; J2270; J2405; J2543; J2704; J2710; J3010; J3370; J3480; J3490; J7030; J7040; J7050; P9016; Q0162; Q9967; A9270; J1596; J1836

== ENCOUNTER 2025-04-30 09:08 | Emergency (ER) | payer OTHER, SELFPAY ==
[2025-04-30 09:09] VITALS: BMI 26.5
[2025-04-30 09:40] VITALS: BP 107/73; PULSE 75; RESP 16; TEMP 36.8; O2SAT 99
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
== END 2025-04-30 12:33 | disposition home or self-care (01) ==
PROVIDERS: Emergency Provider Emergency Medicine; PCP Family Medicine
DX: S16.1XXA Strain of muscle, fascia and tendon at neck level, initial encounter (principal); V89.2XXA Person injured in unspecified motor-vehicle accident, traffic, initial encounter; Y92.410 Unspecified street and highway as the place of occurrence of the external cause; W22.10XA Striking against or struck by unspecified automobile airbag, initial encounter
CPT/HCPCS: 72100; 99283